=== PATIENT | female | born 1985 | race Caucasian/White ===

== ENCOUNTER 2024-07-24 09:43 | Outpatient (CLI) | payer BC, SELFPAY ==
--- NOTE | 2024-07-24 09:48 | CRLHL7_ITS ---
For Patients: As a result of the Century Cures Act, medical imaging exams and procedure reports are released immediately into your electronic medical record. You may view this report before your referring provider. If you have questions, please contact your health care provider. INDICATION: Follow-up JADE and BPP COMPARISON: None available TECHNIQUE: Real time lemos scale imaging of the fetus was performed. Without non-stress testing. FINDINGS: Sonographic imaging demonstrates a single living intrauterine gestation. Fetus demonstrates a regular cardiac rate of 147 beats per minute. Fetus has a vertex position. The amniotic fluid volume single deepest pocket measurement of 7.0 cm. JADE 17.2 cm. The fetus was active and demonstrated normal breathing movements. There was normal flexion and extension of the trunk and extremities. IMPRESSION: Normal biophysical profile score of 8 out of 8. Dictated by Sukhjinder Lockwood MD @ 07/24/2024 10:56:42 AM (Electronically Signed)
== END 2024-07-24 09:44 | disposition home or self-care (01) ==
PROVIDERS: Visit Provider Advanced Practice Midwife
DX: O09.523 Supervision of elderly multigravida, third trimester (principal); Z3A.31 31 weeks gestation of pregnancy
CPT/HCPCS: 76819

== ENCOUNTER 2024-08-13 11:27 | Outpatient (CLI) | payer BC, SELFPAY | END 2024-08-13 11:28 | disposition home or self-care (01) | LOC: NFLDREF 11:28 | PROVIDERS: Visit Provider Midwife | DX: Z34.93 Encounter for supervision of normal pregnancy, unspecified, third trimester (principal); O09.523 Supervision of elderly multigravida, third trimester; Z3A.34 34 weeks gestation of pregnancy | CPT/HCPCS: 82728; 86787 ==

== ENCOUNTER 2024-08-29 11:04 | Outpatient (CLI) | payer BC, SELFPAY ==
[2024-08-30 12:43] LABS: Strep B DNA Probe POSITIVE (Negative)
[2024-08-30 12:45] LABS: Strep B Susceptibility Needed? No
== END 2024-08-29 11:05 | disposition home or self-care (01) ==
LOC: NFLDREF 11:05
PROVIDERS: Visit Provider Advanced Practice Midwife
DX: Z34.83 Encounter for supervision of other normal pregnancy, third trimester (principal)
CPT/HCPCS: 87081; 87653

== ENCOUNTER 2024-09-05 09:02 | Outpatient (CLI) | payer BC, SELFPAY ==
--- NOTE | 2024-09-05 09:15 | CRLHL7_ITS ---
For Patients: As a result of the Century Cures Act, medical imaging exams and procedure reports are released immediately into your electronic medical record. You may view this report before your referring provider. If you have questions, please contact your health care provider. INDICATION: Advanced maternal age TECHNIQUE: Ultrasound OB pelvis transabdominal. Real-time lemos-scale imaging of the fetus was performed as well as color Doppler and spectral Doppler analysis of the umbilical artery. COMPARISON: None. FINDINGS: Coronel intrauterine gestation. heart rate: 126 beats per minute. Presentation: Cephalic. Placenta: Posterior. Amniotic fluid deepest pocket: 8.8 cm, with JADE of 25.9. 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 No kidney seen in the right renal fossa. Velamentous cord insertion. The following biometric measurements were obtained: Biparietal diameter: 43.8 percentile. Head circumference: 31.9 percentile. Abdominal circumference: 53.6 percentile. Femur length: 16 percentile. Ultrasound age: 36 weeks, 6 days. LMP age: 37 weeks, 3 days. KARTHIK by LMP: 09/23/2024. EFW: 3027 Grams, 41 %. IMPRESSION.: Coronel intrauterine in cephalic presentation with cardiac activity. Estimated gestational age of 37 weeks, 3 days based on LMP is concordant with biometry. Estimated weight of 3027 grams, which is at 41st percentile. Posterior placenta. Velamentous cord insertion, which was reportedly noted on prior outside anatomy scan. Solitary left kidney. Right kidney is not visualized in the renal fossa. Borderline polyhydramnios with JADE of 25.9 centimeters. Dictated by Tammy Conte MD @ 09/06/2024 10:02:00 AM (Electronically Signed)
== END 2024-09-05 09:03 | disposition home or self-care (01) ==
LOC: US 09:02
PROVIDERS: Visit Provider Advanced Practice Midwife
DX: O09.523 Supervision of elderly multigravida, third trimester (principal); O35.EXX0 Maternal care for other (suspected) fetal abnormality and damage, fetal genitourinary anomalies, not applicable or unspecified; O40.3XX0 Polyhydramnios, third trimester, not applicable or unspecified; Z3A.37 37 weeks gestation of pregnancy
CPT/HCPCS: 76816

== ENCOUNTER 2024-09-17 05:41 | Inpatient (IN) | payer BC, SELFPAY ==
[2024-09-17] VITALS (46 sets, daily range): BP systolic 94–157; BP diastolic 47–86; PULSE 50–103; RESP 16–18; TEMP 36.5–36.7; O2SAT 93–100; BMI 27.8
--- NOTE | 2024-09-17 05:29 | W.PM.LDBA ---
Subjective History of Present Illness Date Seen: 09/17/24 Narrative: Patient is being admitted to Labor and Delivery for active labor. She is a 39 year old at 39w1d weeks gestation. Her full history and physical was dictated by Chiqui Bland CNM on 08/29/2024. Please see this for details. Specific Issues/Plans Transfer at 30 weeks' gestation from [place]? Partner: Geoff, this is a boy! (has 3 girls) H&P:? 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 Normal appearance noted again at 37wks. ? [facility] recommends no further follow up for this? #? Polyhydramnios Mild JADE 25 on 06/25/24 M recommendations: US Q 2 weeks (BPP per [place] guidelines) scheduled 07/24/24 07/24/2024: JADE 17.2 09/05 JADE 25.9, EFW 41% Interested in IOL at 39 weeks (recommended 39-41wks for mild poly and can consider elective at 39+ for velamentous cord). If she decides not to she will need an US scheduled at 39 weeks. IOL scheduled for 09/17 or . Consent signed 09/13/24 #?AMA?of multigravida. FOB brother has downs. NIPT negative, male #Hx of fainting from low BP with epidural planning unmedicated #Hx of smoking consider PP meds/nicotine replacement, pt typically returns to smoking after delivery #Hx of 4th degree with 1st No records here to review this, per patient report # Marginal vs velamentous cord noted 05/16. Not addressed on any f/u US's. F/U US ordered for 37 week visit. Velamentous confirmed at 37wk US. EFW 41% # GBS Positive Recommend antibiotics in labor labs 02/16/24:?? Blood type: A+, antibody screen negative? Hemoglobin: 13.7? Platelets: 292? Rubella: immune? Varicella: not tested? RPR: NR? Hep B sAg: neg? Hep B sAb: not tested? Hep C Ab:? neg? HIV: neg? HbA1c: not tested? Urine culture: ?> 100,000 mixed positive kayleigh GC/Chlamydia:? neg? Genetic testing: NIPT neg? 1 hr GTT: 104? Imaging:?? 1st trimester:? no records?only note stating bedside US at 8.1 weeks Anatomy scan: 05/06/24 spine and diaphragm are not well seen due to positioning. Right kidney is also not well seen due to positioning limitations. Unable to visualize right renal vein. Approx 28mm X 40mm X 53mm cystic focus within the maternal adnexa posterior to the vagina. No evidence of extrauterine . EFW 49%. 05/16/24 Single live intrauterine gestation. Marginal or velamentous umbilical cord insertion into the placenta. Absent/nonvisualized right kidney. spine not imaged in entirety due to position and movement, normal where able to visualize. Both diaphragms are visualized as intact. Resolution of prior questioned cystic focus about the vagina. Others: ? 05/28/24 Absent right kidney with normal appearing left kidney and normal amniotic fluid level. No other differences noted.EFW 66%? 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 Remaining anatomy completed without anomalies detected. Growth EFW 65%, JADE 25%, mild polyhydramnios. Vaccinations:?? COVID: one vaccine from initial series in 2020, decline booster? Flu: declines booster? Tdap: given 07/19/24? RSV: []? 32 week mental health: []? Last pap:? unknown, no hx of abn? OB - Problem Based A/P Additional Plan (1) Polyhydramnios affecting in third trimester: Status: Acute (2) Velamentous insertion of umbilical cord: Status: Acute (3) Former smoker: Problem details: consider medication/nicotine replacement for . Has returned to smoking after deliveries in the past Status: Acute (4) Renal agenesis, , affecting care of mother, antepartum: Problem details: right kidney agenesis, left kidney and bladder appear normal Status: Acute (5) AMA (advanced maternal age) multigravida 35+: Status: Acute Plan ASSESSMENT:?? 39 at 39w1d gestation?? complicated by:??AMA, velamentous cord insertion, kidney missing x1, hx 4th degree, mild polyhydramnios Labor type: Spontaneous, Active labor?? Category 1 FHR pattern.??? Labor complicated by: GBS +, velamentous cord insertion, mild polyhydramnios?? GBS positive? PLAN:?? 1. Routine intrapartum cares as ordered. Continue with expectant management?? 2. Monitoring per policy, continuous or intermittent?? 3. Planning unmedicated . Desires water . Waterbirth tub room is in use and not available at this time. Candidate for analgesia of choice.??? 4. Patient encouraged to reposition and ambulate to promote physiologic labor and .?? 5. GBS prophylaxis initiated for GBS positive status. Will treat with antibiotics per protocol.? 6. Anticipate ? OB Exam Physical Exam Vital signs: Pulse BP Pulse Ox 56 L 124/70 99 09/17/24 05:21 09/17/24 05:21 09/17/24 05:21 Narrative: Vitals Reviewed Constitutional:? Alert and oriented x3 HEENT:? Normocephalic, atraumatic Neck:? Supple Lungs:? Clear to auscultation bilaterally Heart:? Regular rate and rhythm, no murmur, rub or gallop Abdomen:? Soft, nontender, and gravid. Vertex by Ag's, confirmed with cervical exam. Extremities:? No edema or erythema Cervix: 4 cm/75%/-1 station NST: 140 bpm/moderate variability/accelerations present/decelerations absent/contractions q 5 min
[2024-09-17] MEDS: AMPICILLIN 2 GM in 0.9 % SODIUM CHLORIDE Mini-bag 100 ML IVPB (06:25)
[2024-09-17] MEDS: CALCIUM CARBONATE 500 MG CHEW PO (06:27)
[2024-09-17 07:00] LABS: Basophils Percent Auto 0.3 % (0.0-3.0); Eosinophils Percent Auto 0.7 % (0.0-7.0); Hematocrit 39.7 % (33.0-51.0); Hemoglobin* 13.2 gm/dL (12.0-16.0); Immature Granulocytes Pct Auto 0.3 %; Mean Corpuscular HGB Conc 33 gm/dL (32-36); Mean Corpuscular Hemoglobin 31 pg (26-34); Mean Corpuscular Volume 92 fL (80-100); Monocytes Percent Auto 8.1 % (0.0-11.0); Neutrophils Percent Auto 71.6 % (42.0-72.0); Platelet Count* 235 K/uL (140-440); RDW Coefficient of Variation % 13.1 % (11.5-15.5); White Blood Count* 11.87 K/uL (4.50-11.00)
[2024-09-17 07:03] LABS: Slide Review Reflex No
[2024-09-17] MEDS: LACTATED RINGERS 1000 ML 1,000 ML 1200 ML IV (07:30)
[2024-09-17] MEDS: fentaNYL 100 MCG/2 ML inj 25 MCG INTRATHECA (07:45)
[2024-09-17] MEDS: PHENYLEPHRINE 100 MCG/ML SYRINGE IVP (07:55)
--- NOTE | 2024-09-17 08:06 | P.ANBPRC_ITS ---
[facility] Medical History Maternal anesthesia complication ?O74.9 - Complication of anesthesia during labor and delivery, unspecified (ICD-10) Concussion ?S06.0XAA - Concussion with loss of consciousness status unknown, initial encounter (ICD-10) Surgical History [place] teeth removed ?K08.409 - Partial loss of teeth, unspecified cause, unspecified class (ICD- 10) Hx of removal of cyst ?Z98.890 - Other specified postprocedural states (ICD-10) Family History Mother Thyroid disease Father Diabetes Grandmother Diabetes Social History Narrative: Education: Bachelor's? ? Work: stay at home, previously worked at a [employer]? ? Partner: Geoff, works as computer graphics illustrator? ? Lives with: and 3 children, ages 8, 5, 2? ? Pets: cat, changes?litter Abuse: Denies past Safe at home with current partner ? ? ? Special Diet: Denies? ? Ok with a blood transfusion: yes? ? Culture or islam beliefs: denies? RISK FACTORS? ? Exercise Times/wk: walking, lifts small weights about every other day? ? Depression/Anxiety: some when ? ? Previous Treatments NA ? Therapy yes in past WILLIS: 1 PHQ 9: 6? ? Seat Belt Use: Routinely ? Smoking: ? ?Smoked 10 years, 1/2 PPD May be interested in nicotine replacement for Alcohol/day: Denies while ? ?one a day on average when not Caffeine: coffee or pop 1-2 day? ? Drug Use: Denies past/present? What is your current living situation?: I presently have a place to live Problems where you live: no known problems In the past 12 months, utilities in danger of being shut off: no In the past 12 mos, have been you worried that your food would run out before you had money to buy more?: never true In the past 12 mos, the food you bought just didn't last and you didn't have money to buy more?: never true Smoking Status: Former smoker How often does anyone, including family, friends and others, physically hurt you : never How often does anyone, including family, friends and others, insult or talk down to you: never How often does anyone, including family, friends and others, threaten you with harm: never How often does anyone, including family, friends and others, scream or curse at you: never Meds Home Medications and Allergies Home Medications ?Medication ?Instructions ?Recorded ?Confirmed ?Type vit 168-iron 27 mg-folic cap PO 07/19/24 09/13/24 History acid 800 mcg-omega3 235 mg capsule (One-A-Day -1) Allergies Allergy/AdvReac Type Severity Reaction Status Date / Time contact metal agent Allergy Mild Skin Verified 09/13/24 09:45 Irritation Results Labs Labs: Laboratory Results - last 24 hr 09/17/24 05:56 WBC 11.87 H RBC 4.30 Hgb 13.2 Hct 39.7 MCV 92 MCH 31 MCHC 33 RDW Coeff of Horace 13.1 Plt Count 235 Neut % (Auto) 71.6 Lymph % (Auto) 19.0 L [place] % (Auto) 8.1 Eos % (Auto) 0.7 Baso % (Auto) 0.3 Neut # (Auto) 8.50 H Lymph # (Auto) 2.30 Ferry # (Auto) 1.00 H Eos # (Auto) 0.10 Baso # (Auto) 0.00 Abs Immat Gran (auto) 0.00 Imm/Tot Granulo (auto) 0.3 Blood Type A Positive Antibody Screen NEGATIVE Vital Signs Vital Signs: Last Vital Signs Pulse 71 09/17/24 08:04 BP 112/66 09/17/24 08:04 Pulse Ox 100 09/17/24 08:01 Weight: 80.484 kg Height: 170.18 cm Anesthesia Procedures Intrathecal Patient Location: OB Start Time: 07:30 Stop Time: 08:15 Start Date: 09/17/24 Stop Date: 09/17/24 Reason for Block: procedure for pain Patient Position: sitting Performed By: Sona Rivas Preanesthetic Checklist: IV checked, site marked, risks and benefits discussed, monitors and equipment checked, pre-op evaluation, timeout performed and anesthesia consent Prep: chlorhexidine gluconate Monitoring: blood pressure monitoring, continuous pulse oximetry and heart rate Approach: midline Vertebral Space: lumbar (1-5) Needle Type: Pencan Injection Technique: single-shot Needle gauge: 24
--- NOTE | 2024-09-17 09:50 | W.PM.OBVAGDE ---
OB Procedure Vag Delivery Mother Details Mother Details: Mckenzie is a 39 year-old, 7, Para 3, admitted on 09/17/24 at 39.1 weeks gestation. : 7 Para: 4 Weeks Gestation: 39.1 Admission Date: 09/17/24 Additional Details Amniotic Membrane Rupture Date: 09/17/24 Amniotic Membrane Rupture Time: 08:37 Amniotic Membrane Fluid Description: Meconium Stained and Yellow Analgesia/Anesthesia Type: Intrathecal Waterbirth: No Pitcoin: No Intrapartal Events: Precipitous Labor <3 Hrs Labor Onset: 07:00 Complete: 08:40 Pushin:42 Heart: heart tones during second stage were reassuring with decelerations notable during pushing and return to baseline between contractions. Delivery Details Delivery Date: 09/17/24 Delivery Time: 09:02 Route of delivery: Infant Gender: Male Viability: Alive; Heart Rate Present Position at Delivery: OP Delivery Details: Patient was admitted for spontaneous onset of labor and progressed normally. Patient had desired a waterbirth but the waterbirth room was occupied. Patient was initially coping well with the bathroom tub but felt she wasn't able to get as comfortable and requested something for pain, initially requesting fentanyl. Due to current labor status, she was offered fentanyl vs ITN due to risk with fentanyl to baby when delivery occurs shortly after administration. She elected to proceed with ITN and was able to get pain relief with this option. Patient then SROM'd clear fluid at 0837. Patient was complete at 0840 and pushing at 0842. of a viable male at 0902 in semi-reclined position on the bed. Vertex delivered OA with tight nuchal. Delivered and reduced after of body. No shoulder. Body delivered easily and without incident. passed to mothers abdomen with a vigorous cry. Cord was clamped and cut at > 5 minutes. APGARS were 8 at one minute and 9 at five minutes respectively. Mouth was bulb suctioned. Intact placenta with a 3 vessel cord delivered spontaneously at 0914. Fundus firm. 1st degree perineal laceration identified and repaired in typical fashion. QBL 200 cc. Mother and baby stable; mother plans to breastfeed. Infant weight 7lb 5oz. 1 Minute Interval Total Score: 8 5 Minute Interval Total Score: 9 Additional Details Shoulder Dystocia: No Placenta Delivery Time: 09:14 Placental Delivery Description: Spontaneous Delivery repair: Vicryl Procedure Done: Global Blood Loss: 200 Laceration: Perineal - 1st Degree Blood Loss Measurement Type: QBL Bakri Used: No Sponge/Need Count Correct: Yes Cord Vessel Description: 3 Vessels Event Summary Status: Mother and infant were stable after delivery. Disposition: floor
[2024-09-17] MEDS: IBUPROFEN 600 MG TABLET PO ×3 (12:00→22:53)
[2024-09-17] MEDS: ACETAMINOPHEN 500 MG TABLET 1000 MG PO (16:08)
[2024-09-18 05:00] VITALS: BP 103/65; PULSE 77; RESP 16; TEMP 36.6; O2SAT 96
--- NOTE | 2024-09-18 08:05 | PM.OBDSVD1 ---
DS: Providers Provider Date Seen: 09/18/24 Date of admission: 09/17/24 05:41 Primary care physician: Not a Local Provider Admitting Clinician: Trupti Martinez CNM Attending Physician on discharge: Charity Avendano CNM Date of Discharge: 09/18/24 DS: Diagnosis Discharge Diagnosis (1) care and examination of lactating mother: Status: Acute Exam Narrative: Exam Narrative: VSS, afebrile GENERAL APPEARANCE: ?normal affect, alert, no distress MOOD: ?appropriate HEENT: normocephalic, neck supple, full ROM CHEST: ?Symmetrical chest wall movement. ?Normal respiratory effort. ?Clear to auscultation HEART: ?regular rate and rhythm ABDOMEN: ?soft, non-tender. Uterine fundus is firm, at Umbilicus, Midline and is appropriate for the stage of recovery. ?Bowel sounds present. PERINEUM: ?mild edema of the perineum, there is a 1st degree laceration that is healing well. EXTREMITIES: ?normal and no edema Const: Vital Signs, click to edit/add: Vital Signs - 24 hr 09/17/24 08:06 09/17/24 08:07 09/17/24 08:11 Temperature Pulse Rate 61 Pulse Rate [Pulse Oximeter] Respiratory Rate Blood Pressure 95/63 Blood Pressure [Le ft Arm] Pulse Oximetry 100 [facility] 08:13 09/17/24 08:16 09/17/24 08:17 Temperature Pulse Rate 61 50 L 55 L Pulse Rate [Pulse Oximeter] Respiratory Rate Blood Pressure 100/49 L 99/51 L 97/53 L Blood Pressure [Le ft Arm] Pulse Oximetry 100 Oxygen Delivery Ma thod 09/17/24 08:20 09/17/24 08:21 09/17/24 08:22 Temperature Pulse Rate 50 L 51 L Pulse Rate [Pulse Oximeter] Respiratory Rate Blood Pressure 109/50 L 95/47 L Blood Pressure [Le ft Arm] Pulse Oximetry 100 [facility] 08:23 09/17/24 08:26 09/17/24 08:28 Temperature Pulse Rate 50 L 53 L 53 L Pulse Rate [Pulse Oximeter] Respiratory Rate Blood Pressure 94/48 L 95/56 L 94/51 L Blood Pressure [Le ft Arm] Pulse Oximetry 100 [facility] 08:30 09/17/24 08:31 09/17/24 08:32 Temperature Pulse Rate 51 L 103 H Pulse Rate [Pulse Oximeter] Respiratory Rate Blood Pressure 102/50 L 102/49 L Blood Pressure [Le ft Arm] Pulse Oximetry 100 Oxygen Delivery Me thod 09/17/24 08:36 09/17/24 08:45 09/17/24 08:46 Temperature Pulse Rate 52 L 75 Pulse Rate [Pulse Oximeter] Respiratory Rate Blood Pressure 102/58 L 123/58 L Blood Pressure [Le ft Arm] Pulse Oximetry 100 100 Oxygen Delivery Me thod 09/17/24 08:50 09/17/24 08:55 09/17/24 08:56 Temperature Pulse Rate 53 L Pulse Rate [Pulse Oximeter] Respiratory Rate Blood Pressure 107/54 L Blood Pressure [Le ft Arm] Pulse Oximetry 100 99 Oxygen Delivery Me thod 09/17/24 08:59 09/17/24 09:00 09/17/24 09:05 Temperature 97.7 F Pulse Rate 54 L Pulse Rate [Pulse Oximeter] Respiratory Rate Blood Pressure 102/48 L Blood Pressure [Le ft Arm] Pulse Oximetry 100 Oxygen Delivery Me thod 09/17/24 09:19 09/17/24 09:34 09/17/24 09:48 Temperature Pulse Rate 55 L 61 54 L Pulse Rate [Pulse Oximeter] Respiratory Rate Blood Pressure 104/51 L 152/68 H 112/49 L Blood Pressure [Le ft Arm] Pulse Oximetry Oxygen Delivery Me thod 09/17/24 10:05 09/17/24 10:18 09/17/24 10:33 Temperature Pulse Rate 53 L 85 58 L Pulse Rate [Pulse Oximeter] Respiratory Rate Blood Pressure 119/56 L 113/55 L 107/53 L Blood Pressure [Le ft Arm] Pulse Oximetry Oxygen Delivery Me thod 09/17/24 10:48 09/17/24 11:03 09/17/24 12:34 Temperature 97.7 F Pulse Rate 64 56 L Pulse Rate [Pulse Oximeter] 55 L Respiratory Rate 16 Blood Pressure 106/54 L 104/51 L Blood Pressure [Le ft Arm] 112/69 Pulse Oximetry 96 Oxygen Delivery Me thod Room Air 09/17/24 15:56 09/17/24 19:50 09/17/24 22:50 Temperature 98.1 F 97.7 F 97.7 F Pulse Rate Pulse Rate [Pulse Oximeter] 62 53 L 63 Respiratory Rate 18 16 16 Blood Pressure Blood Pressure [Le ft Arm] 104/61 118/71 108/67 Pulse Oximetry 96 97 96 Oxygen Delivery Me thod Room Air Room Air Room Air 09/18/24 05:00 Temperature 97.8 F Pulse Rate Pulse Rate [Pulse Oximeter] 77 Respiratory Rate 16 Blood Pressure Blood Pressure [Le ft Arm] 103/65 Pulse Oximetry 96 Oxygen Delivery Me thod Room Air Documenting provider has reviewed patient's vital signs: yes OB - DS: Summary Hospital Course Hospital Course: Jacinta is a 39 y.o. who was admitted to L & D for labor. ?She had an uncomplicated NVD.?The patient feels well. ?The pain is well controlled with current medications. ?She has no new complaints. ?She is breast feeding and reports things are going well.? the patient has done well.? Vitals have been stable.? She has remained afebrile.? Has a good appetite, is tolerating a general diet. ?She is voiding without difficulty.? She is passing gas and has not had a bowel movement.? She is ambulating and denies any dizziness.? Has Small amount of rubra lochia. ?She is planning IUD for prevention. Peripartum Data Infant delivery method: Vaginal Laceration description: Perineal - 1st Degree complications: none [place] Gender: Male Discharge Plan: Home Status at Discharge Functional status at discharge: independent ambulation Overall status at discharge: patient is progressing back to baseline Time Spent with Patient Time attestation: Total time spent providing and/or coordinating discharge services: Time spent: Less than 30 minutes Discharge Plan Discharge Disposition: Home, Self-Care Date of Admission: 09/17/24 05:41 Attending Provider on Discharge: Charity Avendano Primary Care Provider: Provider,Not a Local Condition: Stable Anticipated Discharge Date/Time: 09/18/24 12:00 Discharge Medications: New acetaminophen 500 mg Tablet 1,000 mg PO Q6H PRNQty: 0 0RF docusate sodium 100 mg Capsule 100 mg PO DAILY Qty: 90 0RF ibuprofen 600 mg Tablet 600 mg PO Q6H PRNQty: 60 0RF Continued One-A-Day -1 27 mg iron- 800 mcg-235 mg capsule 1 cap PO DAILY Discharge Orders: Discharge Order (Routine); Ordered 09/18/24 Ordered By: Charity Avendano Patient Education: OB Over the Counter Medication Information, OB Vaginal/Breast Feeding Activity Level: Activity as Tolerated Discharge Diet: Regular Follow Up Appointments: [facility] [Provider Group] Forms: MyHealth Info Instructions
[2024-09-18 08:50] VITALS: BP 113/74; PULSE 71; RESP 16; TEMP 36.5; O2SAT 96
[2024-09-18] MEDS: IBUPROFEN 600 MG TABLET PO (08:52)
[2024-09-18] MEDS: DOCUSATE SODIUM 100 MG CAPSULE PO (08:53)
--- NOTE | 2024-09-18 10:00 | PM.ANPOST ---
Post Anesthesia Note Post Anesthesia Note Patient seen: Inpatient Respiratory Status: adequate Cardiovascular Status: adequate Mental Status: baseline Pain: adequate Temp: baseline Anesthetic awareness: N/A Complications: none Follow care: none
[2024-09-19 05:57] LABS: Rapid Plasma Reagin (RPR) Non Reactive (Non Reactive)
== END 2024-09-18 11:08 | disposition home or self-care (01) | DRG 560 ==
LOC: OB OUT 09:40 → OB 11:06
PROVIDERS: Admitting Provider Midwife; Visit Provider Advanced Practice Midwife
DX: O70.0 First degree perineal laceration during delivery (principal); O43.123 Velamentous insertion of umbilical cord, third trimester; Z3A.39 39 weeks gestation of pregnancy; Z37.0 Single live birth; O77.0 Labor and delivery complicated by meconium in amniotic fluid; Z87.891 Personal history of nicotine dependence; O36.5930 Maternal care for other known or suspected poor fetal growth, third trimester, not applicable or unspecified; O99.824 Streptococcus B carrier state complicating childbirth; O35.EXX0 Maternal care for other (suspected) fetal abnormality and damage, fetal genitourinary anomalies, not applicable or unspecified
CPT/HCPCS: 01967; 36415; 85025; 86592; 86850; 86900; 86901; 88307; G0463; A9270; J0290; J2371; J3010; J7120